=== PATIENT | male | born 1975 | race Caucasian/White ===

== ENCOUNTER 2024-05-04 13:33 | Outpatient (REF) | payer BC, SELFPAY | END 2024-05-04 13:34 | disposition home or self-care (01) | LOC: LBN 13:33 | PROVIDERS: Visit Provider Nurse Practitioner Family | DX: S60.460A Insect bite (nonvenomous) of right index finger, initial encounter (principal); M79.644 Pain in right finger(s); L53.8 Other specified erythematous conditions | CPT/HCPCS: 87077; 87070; 87186; 87205 ==